=== PATIENT | female | born 1950 | race Caucasian/White ===

== ENCOUNTER 2016-11-07 11:55 | Emergency (ER) | payer OTHER ==
--- NOTE | ~2016-11-07 | EKG ---
PATIENT: FARNAZ POSADA UNIT #: [id number] Ventricular Rate: 63 BPM Atrial Rate: 63 BPM P-R Interval: 190 ms QRS Duration: 88 ms Q-T Interval: 430 ms QTC Calculation(Bezet): 440 ms P Hartly: 47 degrees Calculated R Hartly: -6 degrees Calculated T Hartly: 12 degrees Diagnosis Line: Normal sinus rhythm Diagnosis Line: Inferior infarct , age undetermined Diagnosis Line: Abnormal ECG Diagnosis Line: When compared with ECG of 06-NOV-2011 06:51, Diagnosis Line: Questionable change in QRS axis Diagnosis Line: T wave inversion no longer evident in Lateral Diagnosis Line: leads Diagnosis Line: Confirmed by SHARA DUEÑAS MD ([id number]) on 11/10/2016 Diagnosis Line: 8:01:16 PM INTERPRETING MD: LEANA LORENZANA
--- NOTE | ~2016-11-07 | CT71 ---
[facility] A Service of [facility] RADIOLOGY TEXT RESULTS PATIENT: FARNAZ POSADA LOCATION: SED : 52 UNIT #: [id number] AGE: [address]: Jose Juan Gregory MD SEX: F ORDER DR: [id number] [place] [id number] E MR#: [id number] #: [id number] NAME: FARNAZ POSADA. : 1950 SEX: F STUDY DATE/TIME: 11/07/2016 12:43 UNIT: SED ROOM: STUDY DESCRIPTION: CT Head Wo Contrast Attending Physician: Jose Juan Gregory M.D. Referring Physician: Jose Juan Gregory M.D. Ordering Physician: Jose Juan Gregory M.D. Primary Care Physician: Ofelia Smith M.D. MEDICAL IMAGING REPORT This report is preliminary unless electronic signature is present. EXAM CT brain without contrast media. HISTORY Fell, hit head, dizziness, fell backwards. TECHNIQUE Transaxial imaging of the brain was performed without contrast media. This CT exam was performed with one or more of the following radiation dose reduction techniques: automatic exposure control, adjustment of mA and/or kV according to patient size, and iterative reconstruction. FINDINGS Ventricular size and configuration is normal. No intra or extraaxial mass lesions, fluid collections, or mass effect are seen. No focal areas of low attenuation or evidence of acute intracranial hemorrhage. There are calcifications in the vertebral arteries and carotid siphons. Bone windows are reviewed. There is a right scalp wound containing air which extends down to the bony calvaria. Subjacent brain parenchyma is normal. CONCLUSIONS 1. Negative noncontrast CT of the brain. No acute intracranial findings. 2. Right parietal scalp wound. No obvious fracture and no obvious foreign body. Dictated by... [facility] A Service [facility] RADIOLOGY TEXT RESULTS PATIENT: FARNAZ POSADA LOCATION: SED : 52 UNIT #: [id number] AGE: [address]: Jose Juan Gregory MD SEX: F ORDER DR: Terrence Hector M.D. THIS IS AN ELECTRONICALLY VERIFIED REPORT Terrence Hector M.D. at 11/08/2016 5:02 PM ANA PAULA/reza TD: 11/07/2016 14:32 JOB #: [id number] MEDICAL IMAGING REPORT Page 1 of 1
[~2016-11-07 11:55] MED LIST: ACTOS PO; ALTOPREV40 MG PO; ASPIRIN PO; ASPIRIN81 M2 PO; BACTRIM DS TABL1 TA1 PO; CELEXA PO; DIOVAN PO; EDLUAR10 MG SL; GLUCOTROL PO; JANUVIA PO; KCL; LASIX PO; LORTAB 7.5-5001 TAB PO; LOZOL PO; METFORMIN; MEVACOR PO; MULTI VITAMIN1 EACH PO; NAPROSYN-EC500 MG PO; PHENERGAN PO; PREDNISONE PO; PRILOSEC PO; SERTRALINE HCL100 MG PO; TYLENOL PM; VITAMIN B12-FO1 EACH PO
[2016-11-07 12:26] LABS: BASOPHIL# 0.1 X10e3 (0-0.3); BASOPHIL% 0.5 % (0-2.5); EOSINOPHIL# 0.1 X10e3 (0-0.7); EOSINOPHIL% 0.8 % (0.0-7.0); HEMATOCRIT 38.9 % (35.0-45.0); HEMOGLOBIN 12.6 gm/dL (12.0-16.0); LYMPHOCYTE% 7.6 % (17.0-45.0); MEAN CELL VOLUME 85.2 FL (83-96); MEAN CORPUSCULAR HEMOGLOBIN 27.5 PG (28-34); MEAN CORPUSCULAR HGB CONC 32.3 g/dL (30-36); MEAN PLATELET VOLUME 8.5 FL (6.5-11.5); MONOCYTE# 0.6 X10e3 (0-1.0); MONOCYTE% 4.7 % (3.0-12.0); NEUTROPHIL# 11.5 X10e3 (1.5-7.1); NEUTROPHIL% 86.4 % (40-75); PLATELET COUNT 232 X10e3 (140-420); RED BLOOD COUNT 4.57 X10e (3.90-5.30); RED CELL DISTRIBUTION WIDTH 13.7 % (11.0-15.5); WHITE BLOOD COUNT 13.3 X10e3 (4.0-10.5)
[2016-11-07 12:35] LABS: DIFF IND NO
[2016-11-07 12:42] LABS: POC - CKMB <1.0 ng/mL (0.0-7.9)
[2016-11-07 12:43] LABS: POC - MYOGLOBIN 61.7 ng/mL (0.0-169.0); POC - TROPONIN <0.05 ng/mL (<=0.05)
[2016-11-07 12:48] LABS: ALBUMIN SERUM 4.1 g/dL (3.5-5.0); BILIRUBIN, DIRECT 0.2 mg/dL (0.0-0.2); BILIRUBIN,INDIRECT 0.3 mg/dL (0.0-0.9); BILIRUBIN,TOTAL 0.5 mg/dL (0.2-2.0); BUN/CREATININE RATIO 18.57; CALCIUM SERUM 9.6 mg/dL (8.4-10.2); CREATININE SERUM 0.7 mg/dL (0.6-1.4); GLOM FILT RATE Estimated 90.9 mL/min (>60); POTASSIUM 4.1 mmol/L (3.5-5.1); PROTEIN TOTAL SERUM 7.2 g/dL (6.0-8.3)
== END 2016-11-07 14:20 | disposition home or self-care (01) ==
LOC: SED 11:55
PROVIDERS: Emergency Medicine
DX: S01.01XA Laceration without foreign body of scalp, initial encounter (principal); R55 Syncope and collapse; F32.9 Major depressive disorder, single episode, unspecified; E11.9 Type 2 diabetes mellitus without complications; Z90.49 Acquired absence of other specified parts of digestive tract; W18.00XA Striking against unspecified object with subsequent fall, initial encounter
CPT/HCPCS: 12002; 36415; 70450; 80048; 80076; 82553; 82947; 83874; 84484; 85025; 93005; 99284